=== PATIENT | female | born 1945 | race Caucasian/White ===

== ENCOUNTER → 2017-04-10 | Outpatient (CLI) | payer MEDICARE ==
--- NOTE | 2017-04-10 15:34 | RADIOLOGY REPORT PS360 ---
PROCEDURE: 2-D M-mode and color Doppler study INDICATIONS FOR THE TEST: Chest pain+ COPD Heart Murmur+ Tobacco Smoking Palpitations+ Fatigue+ Syncope Edema+ Hypertension+Diabetes Mellitus Rheumatic Fever SOB+MURILLO+Obesity Hyperlipidemia Family History HD Additional History ABN EKG, Angina, Asthma, Dizziness PATIENT INFORMATION HEIGHT: 66 WEIGHT: 189 GENDER: Female B/P: 154/90 2-D/M-MODE INTERPRETATION: 2-D MEASUREMENTS OBSERVED VALUES IN CMS Right Ventricular Dimension (RVDd) 2.0 Interventricular Septum (Thickness)(IVsd) 1.3 Left Ventricular Internal Dimensions(LVIDd) 4.8 Left Ventricular Posterior Wall (Thickness)(LVPWd) 1.2 Aortic Root 2.0 Aortic Cusp Separation 2.0 Left Atrial Dimensions (LAD) 3.5 2D 1. Left atrium is mildly enlarged, left ventricle is normal size, there is mild concentric left ventricular hypertrophy present, visually estimated ejection fraction 55% with no obvious regional wall motion abnormality. 2. The right atrium and right ventricle are relatively normal size and function. 3. The aortic valve is minimally thickened and fibrosed. 4. The mitral and tricuspid valve are grossly normal. 5. The pulmonic valve is poorly visualized. 6. There is no significant pericardial effusion noted. DOPPLER INTERROGATION: Doppler interrogation of the aortic mitral and tricuspid valvular presence of mild mitral and tricuspid regurgitation, tricuspid regurgitant jet velocity is insufficient for calculation of the right ventricular systolic pressure, grade 1 diastolic dysfunction seen without tissue Doppler evidence of raised left atrial pressure. CONCLUSION: 1. Mildly enlarged left atrium, normal left ventricular size, mild concentric left ventricular hypertrophy, visually estimated ejection fraction 55% with no obvious regional wall motion abnormality, grade 1 diastolic dysfunction seen without tissue Doppler evidence of raised left atrial pressure. 2. Mild mitral and tricuspid regurgitation, tricuspid regurgitant jet velocity insufficient for calculation of the right ventricular systolic pressure. 3. No significant pericardial effusion noted.
== END ==
LOC: RT 14:03
DX: R06.02 Shortness of breath (principal); R94.31 Abnormal electrocardiogram [ECG] [EKG]; I20.9 Angina pectoris, unspecified; I10 Essential (primary) hypertension; E78.5 Hyperlipidemia, unspecified

== ENCOUNTER → 2017-04-19 | Day surgery (SDC) | payer MEDICARE ==
[2017-04-19 07:50] LABS: HEMOGLOBIN 15.1 g/dL (12.2-16.2); LYMPH # 2.7 K/mm3 (0.7-4.5); LYMPH % 41.9 % (10-50.0)
[2017-04-19 08:02] LABS: BUN 24 mg/dL (7-18)
[2017-04-19 08:03] LABS: GFR (ESTIMATED) 62 ML/MIN (59-)
--- NOTE | 2017-04-19 11:46 | RADIOLOGY REPORT PS360 ---
CARDIAC CATHETERIZATION DATE OF CATHETERIZATION:04/19/2017 9:02 AM PROCEDURES: 1. Left heart catheterization 2. Left ventriculogram 3. Selective coronary angiogram 4. Drug eluding stent deployment to the proximal circumflex artery INDICATION FOR TEST: 1. Unstable angina/acute coronary syndrome 2. Coronary artery disease Clinical history: 71-year-old patient who was seen in the office with accelerated class IV angina pectoris. Patient was having very impressive 2 week history of chest pain with very minimal activity accompanied by shortness of breath. She was also describing intermittent chest pain which was similar to her exertional chest pain which had intensified over the 2 days prior to her arrival. Patient's EKG was highly abnormal demonstrating a previous anterior myocardial infarction with diffuse ST-T wave abnormalities. Patient also had hypertension with untreated hyperlipidemia. Because of her classic angina which was occurring at rest and intensifying accompanied by EKG abnormalities and numerous risk factors for coronary artery disease it was decided to take patient directed to the [facility]. Lisinopril HCTZ was started for hypertension control. On the day of the cardiac catheterization patient awoke in the morning with heavy chest pain and pressure. This persisted into her arrival in the preop catheter area where she continued to have a 4 out of 10 chest pain which was intensifying with the slightest bit of movement. Patient was placed first on the catheter schedule and taken directly into the [facility]. She was continuing to have chest pain and pressure with shortness of breath during the prepped for the cardiac catheterization. Clearly patient extended her class IV angina was now experiencing unstable angina and possibly an acute coronary syndrome. Her EKG demonstrated significant ST depression on telemetry strips only. 12-lead was not obtained. Informed consent was obtained prior to the procedure. COMPLICATIONS: None ESTIMATED BLOOD LOSS: Less than 10 ml. TECHNIQUE: One percent lidocaine used to anesthetize the right anterior aspect of the wrist. The right radial artery was accessed via the Seldinger technique. A 6 [place] sheath was placed in the right radial artery. 2.5 mg of verapamil, 800 mcg of nitroglycerin and 5000 U Heparin were given through the arterial sheath. The Tig catheter was also used to perform left heart catheterization and left ventriculography. BEN II flow was present down the circumflex artery. Although this was a nondominant vessel patient had ST depression on telemetry strips and was experiencing chest pain while on the [facility] table. At this point it would not be clinically appropriate to take patient off the table and start a trial of antianginal medications. An additional 4000 units of heparin was administered intravenously along with 60 mg of oral Effient. An Ikari left guide catheter was used intubate the left main artery and a BMW wire was used to traverse the stenosis in the circumflex artery. The ACT measured 336 seconds. A 2.25 x 12 mm resolute Amos stent was deployed at 16 get reducing the critical stenosis to 0%. 800 mcg of nitroglycerin was given after the inflation and repeat angiography demonstrated interval improvement to BEN-3 flow. Patient had no chest pain at the end of the procedure. At the end of the procedure the sheath was removed good hemostasis was achieved using TR banding patient transferred to the postop holding area in stable condition. A repeat ACT was not obtained due to the several minute interval between the first ACT and the end of the procedure. ANGIOGRAPHIC RESULTS: 1. The left main artery normal 2. The left anterior descending artery has proximal 20% eccentric stenoses with mid vessel 20% stenoses 3. The circumflex artery is a nondominant yet still large vessel with proximal 20% stenoses and then one concentric 50% stenosis in the first obtuse marginal artery with a 99% stenosis and a moderate sized second obtuse marginal artery. Initially angiography demonstrated BEN II down the second obtuse marginal artery with BEN-3 flow at the end of the intervention 4. The right coronary artery is a dominant vessel and has mid vessel eccentric 20-30% stenoses and mild 20% stenoses throughout the posterior descending artery 5. The ANDREA ventriculogram reveals normal 65% 6. The left ventricular end-diastolic pressure 15 to 20 mmHg IMPRESSION: 1. Acute coronary syndrome involving the second obtuse marginal artery as evidenced by the EKG abnormalities with associated above-described clinical presentation 2. Successful stenting the second obtuse marginal artery critical stenosis associated with BEN II flow improved to BEN-3 flow with a single drug-eluting stent reducing the stenosis to 0% 3. Moderate stenosis in the proximal first obtuse marginal artery 4. Normal ejection fraction 5. Mildly elevated LVEDP PLAN: 1. Effient and aspirin 2. LDL less than 55 be achieved with high intensity statin 3. Cardiac rehabilitation 4. Patient still requires additional antianginal's. I would recommend starting low-dose beta maryanne as well as low dose of a dihydropyridine calcium channel maryanne. Patient still has some degree of hypertension 5. Avoidance of tobacco products 6. Risk factor modification
[2017-04-19 14:54] VITALS: BP 155/85
== END ==
LOC: CATHLAB 04-11 08:30
PROVIDERS: Internal Medicine
PROC: B2111ZZ Fluoroscopy of Multiple Coronary Arteries using Low Osmolar Contrast (ICD-10-PCS; 2017-04-19)
PROC: B2151ZZ Fluoroscopy of Left Heart using Low Osmolar Contrast (ICD-10-PCS; 2017-04-19)
PROC: 027034Z Dilation of Coronary Artery, One Artery with Drug-eluting Intraluminal Device, Percutaneous Approach (ICD-10-PCS; 2017-04-19)
PROC: 4A023N7 Measurement of Cardiac Sampling and Pressure, Left Heart, Percutaneous Approach (ICD-10-PCS; principal; 2017-04-19 08:30)
DX: I25.110 Atherosclerotic heart disease of native coronary artery with unstable angina pectoris (principal); Z72.0 Tobacco use; R07.9 Chest pain, unspecified; R94.31 Abnormal electrocardiogram [ECG] [EKG]; I10 Essential (primary) hypertension
CPT/HCPCS: C1725; C1769; C1876; J1644; Q9967

== ENCOUNTER → 2017-05-17 | Day surgery (SDC) | payer MEDICARE ==
[2017-05-17] VITALS (9 sets, daily range): BP systolic 110–139; BP diastolic 51–77
[2017-05-17 08:40] LABS: BUN 26 mg/dL (7-18); GFR (ESTIMATED) 62 ML/MIN (59-)
[2017-05-17 08:43] LABS: HEMOGLOBIN 15.2 g/dL (12.2-16.2); LYMPH % 30.4 % (10-50.0)
--- NOTE | 2017-05-17 14:49 | RADIOLOGY REPORT PS360 ---
CARDIAC CATHETERIZATION DATE OF CATHETERIZATION:05/17/2017 8:46 AM PROCEDURES: 1. Left heart catheterization 2. Left ventriculogram 3. Selective coronary angiogram INDICATION FOR TEST: 1. Persistent angina pectoris 2. Risk factors for coronary artery disease 3. Higher pretest likelihood for coronary artery disease Informed consent was obtained prior to the procedure. COMPLICATIONS: None ESTIMATED BLOOD LOSS: Less than 10 ml. TECHNIQUE: One percent lidocaine used to anesthetize the right anterior aspect of the wrist. The right radial artery was accessed via the Seldinger technique. A 6 [place] sheath was placed in the right radial artery. 2.5 mg of verapamil, 800 mcg of nitroglycerin and 5000 U Heparin were given through the arterial sheath. The Kristy catheter was also used to perform left heart catheterization and left ventriculography. At the end of the procedure the patient was transferred to the post-op holding area in stable condition for arterial sheath removal. ANGIOGRAPHIC RESULTS: 1. The left main artery normal 2. The left anterior descending artery proximally has smooth 10% stenosis with mid vessel 10% stenoses 3. The circumflex artery is a nondominant vessel and has proximal 30% stenoses mid vessel sequential 40% stenoses. There is a terminal 2 mm obtuse marginal artery that has a 60-70% concentric stenosis 4. The right coronary artery is a large dominant vessel and has a mid vessel eccentric 30% stenosis with distal 10% stenoses 5. The ANDREA ventriculogram reveals normal 65% 6. The left ventricular end-diastolic pressure 10 mmHg IMPRESSION: 1. Mild to moderate coronary disease in the proximal nondominant circumflex artery with the severe stenosis in the distal obtuse marginal artery not clinically appropriate for intervention 2. Normal ejection fraction 3. Normal left ventricular end-diastolic pressure PLAN: 1. Continue antianginal medications 2. Risk factor modification
== END ==
LOC: CATHLAB 07:30
PROVIDERS: Internal Medicine
PROC: B2111ZZ Fluoroscopy of Multiple Coronary Arteries using Low Osmolar Contrast (ICD-10-PCS; 2017-05-17)
PROC: B2151ZZ Fluoroscopy of Left Heart using Low Osmolar Contrast (ICD-10-PCS; 2017-05-17)
PROC: 4A023N7 Measurement of Cardiac Sampling and Pressure, Left Heart, Percutaneous Approach (ICD-10-PCS; principal; 2017-05-17 11:00)
DX: I25.119 Atherosclerotic heart disease of native coronary artery with unspecified angina pectoris (principal); I11.9 Hypertensive heart disease without heart failure; R07.9 Chest pain, unspecified; R06.09 Other forms of dyspnea
CPT/HCPCS: C1725; C1769; J1644; Q9967